=== PATIENT | male | born 1990 | race Caucasian/White ===

== ENCOUNTER 2016-06-18 09:48 | Emergency (ER) | payer OTHER ==
--- NOTE | 2016-06-18 11:18 | EDPHY ---
H & P Stated Complaint: INHALED GAS EXPOSURE HPI/ROS: Chief complaint: Woozy, possible exposure HPI: 25-year-old male was at work today when a co-worker came up to him after leaving a clean room complaining of feeling unwell with a headache vision changes and lightheadedness. Patient states that after his co-worker came out and was in distress he started feeling a bit woozy. He did not developed a headache. Denied fell pain shortness of breath. No nausea or vomiting. He did not have any syncope. He works at [employer] which makes [employer]. The only chemical possible exposures that has some nitrogen cylinder is in the clean room. The patient was in office was not in the clean at that time. Patient states that he still having some symptoms mildly but they did seem to get better when he got when outside. EMS did not record any hazardous chemicals under initial evaluation. No other workers at the facility experience any symptoms. ROS: 10 point Review of Systems is negative except as noted in the HPI. Past medical history: None Medications: None Allergies: Penicillin Social history: Does not smoke, does drink occasional alcohol, no other recreational drug use Physical exam: Gen: Awake, Alert, No Distress HEENT: Nose: no rhinorrhea Eyes: PERRLA, EOMI Mouth: Moist mucosa Neck: Supple, no JVD Chest: nontender, lungs clear to auscultation Heart: S1, S2 normal, no murmur Abd: Soft, non-tender, no guarding Back: no CVA tenderness, no midline tenderness Ext: no edema, non-tender Skin: no rash Neuro: CN II-XII intact, Sensation grossly intact, Strength 5/5 in bilateral upper and lower extremities - Personal History Current Tetanus/Diphtheria Vaccine: Yes Current Tetanus Diphtheria and Acellular Pertussis (TDAP): Yes - Medical/Surgical History Hx Asthma: No Hx Chronic Respiratory Disease: No Hx Diabetes: No Hx Cardiac Disease: No Hx Renal Disease: No Hx Cirrhosis: No Hx Alcoholism: No Hx HIV/AIDS: No Hx Splenectomy or Spleen Trauma: No 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 His co-worker who had worsening symptoms had a normal carboxyhemoglobin here. Patient is otherwise well-appearing with normal vital signs. No evidence of acute intoxication. He has no respiratory symptoms. There is no neurologic symptoms. Given his co-worker with worsening symptoms has a negative carboxyhemoglobin I do not feel is necessary to do any diagnostic testing at this time. Will discharge with follow up with workman's Comp for any concerns. Return for worsening. Departure - Departure Disposition: Home, Routine, Self-Care Clinical Impression: Nausea Condition: Good Instructions: Lightheadedness (ED) Additional Instructions: Return to the emergency depart for increasing headache, nausea, vomiting, difficulty breathing, cough, or any other concerns. Follow up with workman's Comp in 3-4 days for any concerns. Referrals: NONE *PRIMARY CARE P,. [Primary Care Provider] - As per Instructions Work Comp Referral [facility] [Outside] - As per Instructions
[2016-06-18 11:37] VITALS: BP 132/85; PULSE 69; RESP 16; TEMP 97.9; O2SAT 96
== END 2016-06-18 11:36 | disposition home or self-care (01) ==
DX: R11.0 Nausea (principal)